=== PATIENT | male | born 1970 | race Caucasian/White ===

== ENCOUNTER 2018-03-26 07:03 | Inpatient (IN) | payer OTHER ==
[~2018-03-26 07:03] MED LIST: CEFAZOLIN 1 GM INJ; DEXAMETHASONE 4 MG/ML 5 ML INJ; SEVOFLURANE 15 MIN
[2018-03-26] MEDS ORDERED: GLYCOPYRROLATE 0.4 MG INJ (08:27)
[2018-03-26] MEDS ORDERED: LIDOCAINE 2% (SDV) 5 ML INJ (08:27)
[2018-03-26] MEDS ORDERED: PROPOFOL 20 ML (08:27)
[2018-03-26] MEDS ORDERED: ROCURONIUM 50 MG INJ (08:27)
[2018-03-26] MEDS ORDERED: NEOSTIGMINE 3 MG/3 ML SYRINGE (08:27)
[2018-03-26] MEDS ORDERED: ONDANSETRON 4 MG INJ (08:28)
[2018-03-26] MEDS ORDERED: MIDAZOLAM 1 MG/ML 2 ML INJ (08:28)
[2018-03-26] MEDS ORDERED: FENTAnyl 50 MCG/ML VIAL (08:28)
[2018-03-26] MEDS ORDERED: CEFAZOLIN 2 GM/50 ML (PMX) 50 ML IVPB (08:30)
[2018-03-26] MEDS ORDERED: LACTATED RINGER'S 1,000 ML IV* (08:30)
[2018-03-26] MEDS ORDERED: SUCCINYLCHOLINE CHLORIDE 100 MG/5 ML SYG IV (08:38)
[2018-03-26] MEDS ORDERED: D5W-0.45 NACL + KCL 20 MEQ 1,000 ML IV (09:09)
[2018-03-26] MEDS ORDERED: CYCLOBENZAPRINE 10 MG TAB PO (09:30)
[2018-03-26] MEDS: CEFAZOLIN 1 GM/50 ML (PMX) 50 ML IVPB ×2 (09:30→17:20)
[2018-03-26] MEDS ORDERED: HYDROCODONE/APAP (10/325) TAB PO (09:30)
[2018-03-26] MEDS ORDERED: AL HYDROX/MG HYDROX/SIMETH 30 ML CUP PO (09:30)
[2018-03-26] MEDS ORDERED: HYDROmorphONE 0.5 MG/0.5 ML SYG IV (09:30)
[2018-03-26] MEDS ORDERED: ONDANSETRON 4 MG INJ IV (09:30)
[2018-03-26] MEDS ORDERED: NALOXONE (0.4 MG/ML) INJ IV (09:30)
[2018-03-26] MEDS ORDERED: DIPHENHYDRAMINE 25 MG CAP PO (09:30)
[2018-03-26] MEDS ORDERED: DIPHENHYDRAMINE 50 MG INJ IV (09:30)
[2018-03-26] MEDS ORDERED: BISACODYL 10 MG SUPP PR (09:30)
[2018-03-26] MEDS ORDERED: CEPASTAT LOZENGE MT (09:30)
[2018-03-26] MEDS ORDERED: ACETAMINOPHEN 325 MG TAB PO (09:30)
[2018-03-26] MEDS: THROMBIN 5000 UNIT VIAL (10:26)
[2018-03-26] MEDS: GELATIN SIZE 100 SPONGE (10:26)
[2018-03-26] MEDS: BUPIVACAINE 0.5%/EPI (SDV) 30 ML INJ (10:26)
[2018-03-26] MEDS: POLYMYXIN/BACITRACIN 1L IRRIG (10:26)
[2018-03-26] MEDS: SURGIFOAM POWDER 1 GM KIT (10:26)
[2018-03-26 12:03] LABS: IMMEDIATE SPIN CROSSMATCH 1 2
[2018-03-26] MEDS ORDERED: HYDROmorphONE 1 MG/5 ML IV SYRINGE IV (13:19)
[2018-03-26] MEDS: ONDANSETRON 4 MG INJ IV (13:27)
[2018-03-26] MEDS: HYDROmorphONE 1 MG/5 ML IV SYRINGE IV ×3 (13:27→13:44)
[2018-03-26] MEDS ORDERED: METOCLOPRAMIDE 10 MG INJ IV (13:30)
[2018-03-26] MEDS ORDERED: MEPERIDINE 25 MG INJ IV (13:30)
[2018-03-26] MEDS ORDERED: OXYCODONE/ACETAMINOPHEN (5/325) TAB PO (13:30)
[2018-03-26] MEDS ORDERED: hydrALAzine 20 MG INJ IV (13:30)
[2018-03-26] MEDS ORDERED: LABETALOL HCL 20MG INJ IV (13:30)
[2018-03-26] MEDS ORDERED: FENTAnyl 50 MCG/ML VIAL IV ×3 (13:30)
[2018-03-26] MEDS: HYDROmorphONE 0.2 MG/ML PCA IV (13:42)
[2018-03-26] MEDS ORDERED: DEXTROSE 50% 50 ML SYRINGE IV ×2 (17:00)
[2018-03-26] MEDS ORDERED: GLUCOSE GEL 15 GRAM TUBE PO ×2 (17:00)
[2018-03-26] MEDS ORDERED: GLUCOSE GEL 15 GRAM TUBE BUCCAL (17:00)
[2018-03-26] MEDS ORDERED: GLUCAGON 1 MG INJ IM (17:00)
[2018-03-26] MEDS: SOD CHLORIDE 0.9% 1,000 ML IV (17:20)
[2018-03-26] MEDS: INSULIN ASPART [NOVOLOG] 3 ML PEN SC (18:01)
[2018-03-26 18:33] LABS: ADD MAN DIFF? NO
[2018-03-26 18:35] LABS: WHITE BLOOD COUNT 5.7 10^3/ul (4.8-10.8)
[2018-03-26 18:35] LABS: ABNORMAL IP MESSAGE 1; BASOPHILS % 0.2 % (0.0-2.0); HEMOGLOBIN 11.7 g/dl (14.0-18.0); LYMPHOCYTES # 0.7 10^3/ul (0.8-2.9); LYMPHOCYTES % 13.1 % (15.0-51.0); MEAN CORPUSCULAR HGB CONC 34.4 g/dl (32.0-37.0); MEAN CORPUSCULAR VOLUME 92.9 fl (82.0-101.0); MONOCYTE # 0.2 10^3/ul (0.3-0.9); MONOCYTES % 2.8 % (0.0-11.0); NEUTROPHIL # 4.7 10^3/ul (1.6-7.5); NEUTROPHILS % 83.7 % (39.0-77.0); PLATELET COUNT 97 10^3/UL (140-415); POSITIVE DIFF @See below; RED BLOOD COUNT 3.66 10^6/ul (4.70-6.10); RED CELL DISTRIBUTION WIDTH 14.1 % (11.5-14.5)
[2018-03-26] MEDS: NADOLOL 40 MG TAB PO (20:47)
[2018-03-26] MEDS: DOCUSATE SODIUM 100 MG CAP PO (20:47)
[2018-03-27] MEDS: CEFAZOLIN 1 GM/50 ML (PMX) 50 ML IVPB ×2 (01:18→09:11)
[2018-03-27] MEDS: ACCU-CHEK XX (01:18)
[2018-03-27] MEDS: SOD CHLORIDE 0.9% 1,000 ML IV (05:27)
[2018-03-27] MEDS: PANTOPRAZOLE 40 MG INJ IV (05:28)
[2018-03-27 05:35] LABS: ADD MAN DIFF? NO
[2018-03-27 05:44] LABS: WHITE BLOOD COUNT 6.4 10^3/ul (4.8-10.8)
[2018-03-27 05:44] LABS: ABNORMAL IP MESSAGE 1; BASOPHILS % 0.2 % (0.0-2.0); EOSINOPHILS % 0.2 % (0.0-7.0); HEMATOCRIT 30.5 % (42.0-52.0); HEMOGLOBIN 10.5 g/dl (14.0-18.0); LYMPHOCYTES # 1.1 10^3/ul (0.8-2.9); LYMPHOCYTES % 17.1 % (15.0-51.0); MEAN CORPUSCULAR HEMOGLOBIN 32.1 pg (29.0-33.0); MEAN CORPUSCULAR HGB CONC 34.4 g/dl (32.0-37.0); MEAN CORPUSCULAR VOLUME 93.3 fl (82.0-101.0); MEAN PLATELET VOLUME 11.4 fl (7.4-10.4); MONOCYTE # 0.6 10^3/ul (0.3-0.9); MONOCYTES % 8.9 % (0.0-11.0); NEUTROPHIL # 4.7 10^3/ul (1.6-7.5); NEUTROPHILS % 73.3 % (39.0-77.0); PLATELET COUNT 90 10^3/UL (140-415); POSITIVE DIFF @See below; RED BLOOD COUNT 3.27 10^6/ul (4.70-6.10); RED CELL DISTRIBUTION WIDTH 14.1 % (11.5-14.5)
[2018-03-27 06:05] LABS: PHOSPHORUS 3.7 mg/dl (2.5-4.9)
[2018-03-27 06:16] LABS: ANION GAP 8 (5-13); BLOOD UREA NITROGEN 15 mg/dl (7-20); CALCIUM 8.6 mg/dl (8.4-10.2); CARBON DIOXIDE 26 mmol/L (21-31); CHLORIDE 106 mmol/L (97-110); CREATININE 0.81 mg/dl (0.61-1.24); Estimated GFR > 60 mL/min (>60); GLUCOSE 132 mg/dl (70-220); MAGNESIUM 1.9 mg/dl (1.7-2.5); POTASSIUM 4.1 mmol/L (3.5-5.1); SODIUM 140 mmol/L (135-144)
[2018-03-27] MEDS: NADOLOL 40 MG TAB PO (09:00)
[2018-03-27] MEDS: metFORMIN 500 MG TAB PO (09:03)
[2018-03-27] MEDS: INSULIN ASPART [NOVOLOG] 3 ML PEN SC ×2 (09:03→13:00)
[2018-03-27] MEDS: PREGABALIN 75 MG CAP PO (09:04)
[2018-03-27] MEDS: DOCUSATE SODIUM 100 MG CAP PO (09:04)
[2018-03-27] MEDS: HYDROCODONE/APAP (10/325) TAB PO ×2 (09:13→15:46)
== END 2018-03-27 17:00 | disposition home or self-care (01) | DRG 520 ==
LOC: REC 07:03 → MS1 15:21
PROVIDERS: Specialist
PROC: 01NB0ZZ Release Lumbar Nerve, Open Approach (ICD-10-PCS; principal; 2018-03-26 09:39)
PROC: 0SB20ZZ Excision of Lumbar Vertebral Disc, Open Approach (ICD-10-PCS; 2018-03-26 09:39)
DX: M51.16 Intervertebral disc disorders with radiculopathy, lumbar region (principal); M48.061 Spinal stenosis, lumbar region without neurogenic claudication; K75.81 Nonalcoholic steatohepatitis (NASH); D70.9 Neutropenia, unspecified; D47.3 Essential (hemorrhagic) thrombocythemia; M48.07 Spinal stenosis, lumbosacral region
CPT/HCPCS: 36430; 72020; 80048; 82962; 83735; 84100; 85025; 86850; 86900; 86901; 86920; 86999; 88304; 97110; 97116; 97161; 97530